=== PATIENT | female | born 1955 | race Caucasian/White ===

== ENCOUNTER → 2017-08-28 | Outpatient (CLI) | payer OTHER ==
[~2017-08-28] MED LIST: ASPIR 8181 MG PO; CALICUM 500+D1 EACH PO; MECLIZINE HCL25 M1 PO; MELATONIN3 MG PO; SIMVASTATIN40 MG PO; VITAMINC500 PO; [UNRECOGNIZED DRUG - REMARK]
== END ==
LOC: M.CT 08-21 10:23
DX: M43.12 Spondylolisthesis, cervical region (principal); M50.31 Other cervical disc degeneration, high cervical region; M12.88 Other specific arthropathies, not elsewhere classified, other specified site

== ENCOUNTER 2020-10-31 03:46 | Emergency (ER) | payer OTHER ==
[~2020-10-31] VITALS: Ht 165.1 cm; Wt 86.2 kg
[2020-10-31] MEDS ORDERED: [UNRECOGNIZED DRUG - OTHER] (03:56)
[2020-10-31] MEDS ORDERED: METFORMIN HCL500 MG PO (03:57)
[2020-10-31 04:30] LABS: ABSOLUTE BASOPHILS 0.1 thou/uL (0.0-0.2); ABSOLUTE EOSINOPHILS 0.1 thou/uL (0.0-0.7); ABSOLUTE MONOCYTES 0.9 thou/uL (0.0-1.2); ABSOLUTE NEUTROPHILS 5.7 thou/uL (1.6-8.1); BASOPHILS 0.8 %; EOSINOPHILS 1.3 %; HEMATOCRIT 36.6 % (37.0-47.0); HEMOGLOBIN 12.3 gm/dL (12.0-15.0); LYMPHOCYTES 30.6 %; MCH 29.8 pg (26.0-34.0); MCHC 33.7 g/dL (28.0-37.0); MCV 88.4 fL (80.0-100.0); MONOCYTES 9.3 %; MPV 8.8 fl. (7.2-11.1); NUCLEATED RBCS 0 /100WBC; PLATELET COUNT* 276 thou/uL (150-400); RBC 4.14 mil/uL (4.20-5.00); RDW-CV 13.5 % (10.5-14.5); WBC 9.9 thou/uL (4.0-11.0)
[2020-10-31 04:30] LABS: URINE BILIRUBIN NEGATIVE (Negative); URINE BLOOD NEGATIVE (Negative); URINE CLARITY CLEAR; URINE COLOR YELLOW; URINE GLUCOSE-RANDOM NEGATIVE (Negative); URINE KETONES NEGATIVE (Negative); URINE LEUKOCYTES-REFLEX NEGATIVE (Negative); URINE NITRITE-REFLEX NEGATIVE (Negative); URINE PROTEIN NEGATIVE (Negative); URINE SPECIFIC GRAVITY >= 1.030 (1.005-1.030); URINE UROBILINOGEN 0.2 E.U./dl (0.2-1.0)
[2020-10-31 04:39] LABS: CALCIUM 8.7 mg/dL (8.5-10.1); CREATININE 0.7 mg/dL (0.6-1.3); POTASSIUM 4.3 mmol/L (3.5-5.1)
[2020-10-31 04:43] LABS: ALBUMIN 4.2 g/dL (3.4-5.0); TOTAL BILIRUBIN 0.4 mg/dL (<0.1-1.0); TOTAL PROTEIN 7.4 g/dL (6.4-8.2)
[2020-10-31] MEDS ORDERED: PERCOCET 5-3251 EACH PO (05:57)
[2020-10-31] MEDS ORDERED: ZOFRAN ODT4 MG PO (05:57)
[2020-10-31] MEDS ORDERED: FLAGYL500 M1 PO (05:57)
[2020-10-31] MEDS ORDERED: CIPROFLOXACIN500 M1 PO (05:57)
[2020-10-31 06:11] VITALS: BP 134/76
== END 2020-10-31 06:11 | disposition home or self-care (01) ==
LOC: M.ERS 03:46
PROVIDERS: Personal Emergency Response Attendant
DX: K57.32 Diverticulitis of large intestine without perforation or abscess without bleeding (principal); Z98.890 Other specified postprocedural states; Z90.89 Acquired absence of other organs; Z91.013 Allergy to seafood; Z91.048 Other nonmedicinal substance allergy status